=== PATIENT | male | born 1965 | race Two or more races ===

== ENCOUNTER 2017-10-06 21:59 | Emergency (ER) | payer SELFPAY ==
[2017-10-06 22:11] VITALS: BP 120/72; PULSE 62; RESP 18; TEMP 98.1; O2SAT 99
== END 2017-10-06 22:11 | disposition left against medical advice (07) ==
LOC: ED 21:59
DX: Z02.89 Encounter for other administrative examinations (principal); F10.10 Alcohol abuse, uncomplicated